=== PATIENT | male | born 1970 | race Caucasian/White ===

== ENCOUNTER 2016-05-21 10:44 | Emergency (ER) | payer MEDICAID, OTHER ==
[~2016-05-21] VITALS: Wt 105.0 kg
[2016-05-21] MEDS ORDERED: traMADol 50 MG TAB PO ONE (11:30)
[2016-05-21] MEDS ORDERED: IBUPROFEN 600 MG TAB PO ONE (11:30)
[2016-05-21 11:31] LABS: URINE BLOOD (Dip) POC Trace-intact (NEGATIVE)
--- NOTE | 2016-05-21 12:24 | RADRPT ---
PROCEDURE: XR Rib series. CLINICAL INDICATION: Pain. Trauma. TECHNIQUE: Left rib x-rays, 4 views. COMPARISON: None. FINDINGS: Bony mineralization appears normal. There is no visible rib fracture. The left lung is clear. Ther e is no pulmonary consolidation or pleural effusion. There is no evidence of pneumothorax. IMPRESSION: No visible rib fracture. RPTAT: [facility]ST .Conchita Diallo MD, MD Date Time Electronically viewed and signed by .Conchita Diallo MD, on 05/21/2016 12:24 .T/
[2016-05-21] MEDS ORDERED: IBUP-1542 PO (12:29)
[2016-05-21] MEDS ORDERED: ULT50 PO (12:29)
--- NOTE | 2016-05-21 12:32 | ERD ---
ER Documentation Chief Complaint Date/Time DATE: 05/21/16 TIME: 12:30 Chief Complaint LEFT SIDE RIB PAIN FROM INJURY ON SATURDAY. NO DISTRESS HPI This 46-year-old male complains of left rib pain for last 2 days. Began after someone slid into moist playing softball. Denies any shortness of breath, blood , fevers, hematuria. His complaints are isolated to his left posterior ribs. Pain is described as 8 out of 10, sharp, increased with breathing and decreased with rest. There is no radiation. ROS All systems reviewed and are negative except as per history of present illness. Medications Home Meds Active Scripts Tramadol HCl (Tramadol HCl) 50 Mg Tablet, 50 MG PO Q4 Y for PAIN, #18 TAB Prov:PAVAN MARCUM MD 05/21/16 Ibuprofen* (Motrin*) 600 Mg Tab, 600 MG PO Q6, #20 TAB Prov:PAVAN MARCUM MD 05/21/16 Allergies Allergies: Coded Allergies: No Known Allergy (Unverified , 03/18/14) PMhx/Soc Medical and Surgical Hx: pt denies Medical Hx, pt denies Surgical Hx Hx Alcohol Use: Yes Hx Substance Use: No Hx Tobacco Use: No Physical Exam Vitals Vital Signs Date Time Temp Pulse Resp B/P Pulse Ox O2 Delivery O2 Flow Rate FiO2 05/21/16 10:45 98.6 85 20 140/91 95 Physical Exam Const: [] Alert, [id number] per Head: Atraumatic Eyes: Normal Conjunctiva ENT: Normal External Ears, Nose and Mouth. Neck: Full range of motion..~ No meningismus. Resp: Clear to auscultation bilaterally. There is some tenderness diffusely in the left posterior chest wall approximately T4-T8. There is no crepitance, erythema, deformities or significant bruising. Cardio: Regular rate and rhythm, no murmurs Abd: Soft, non tender, non distended. Normal bowel sounds Skin: No petechiae or rashes Back: No midline or flank tenderness Ext: No cyanosis, or edema Neur: Awake and alert Psych: Normal Mood and Affect Results 24 hrs Laboratory Tests Test 05/21/16 11:31 Bedside Urine Blood Trace-intact Bedside Urine Glucose (UA) Negative Bedside Urine Ketones (LAB) Negative Bedside Urine Leukocyte Esterase (L Negative Bedside Urine Nitrite (LAB) Negative Bedside Urine Protein (LAB) 2+ Bedside Urine pH (LAB) 6.5 Current Medications Medications (Trade) Dose Ordered Sig/Karly Route PRN Reason Start Time Stop Time Status Last Admin Dose Admin Tramadol HCl (Ultram) 50 mg ONCE ONCE PO 05/21/16 11:30 05/21/16 11:31 DC 05/21/16 11:25 Ibuprofen (Motrin) 600 mg ONCE ONCE PO 05/21/16 11:30 05/21/16 11:31 DC 05/21/16 11:24 Procedures/MDM Urine shows trace blood and protein. There is no leukocytes, nitrites or glucose. X-ray left ribs 2V Interpreted by me: Soft Tissue: No acute abnormalities Bones: No acute abnormalities Mediastinum/Cardiac Silhouette/Lungs: [No acute abnormalities]. Impression abnormal left rib x-ray Patient presents with signs and symptoms of left posterior rib contusion. There is no evidence of fracture, dislocation, hemothorax, pneumothorax, signs or symptoms to suggest significant intrathoracic or intra-abdominal trauma. Patient was treated with tramadol and ibuprofen and observation at home. The patient was stable with no new complaints during the ER course. Clinically, there is no current evidence to suggest meningitis, sepsis, acute abdomen, pneumonia, acute coronary syndrome, pulmonary embolism, or any other emergent condition appearing to require further evaluation or hospitalization. The patient should certainly return for any new or worsening symptoms per the aftercare instructions. They should otherwise follow-up with her primary care doctor for reevaluation this week. Departure Diagnosis: Primary Impression: Rib injury Condition: Stable Patient Instructions: Rib Contusion Additional Instructions: X-rays read as normal. Recheck for new or worsening symptoms having fevers, blood, shortness breath, new symptoms. PAVAN MARCUM MD May 21, 2016 12:32
== END 2016-05-21 12:51 | disposition home or self-care (01) ==
LOC: FTE 10:44
DX: S29.9XXA Unspecified injury of thorax, initial encounter (principal); X58.XXXA Exposure to other specified factors, initial encounter; Y92.9 Unspecified place or not applicable
CPT/HCPCS: 71100; 81003; Z7502; Z7610